=== PATIENT | female | born 1970 | race Caucasian/White ===

== ENCOUNTER 2018-09-12 12:11 | Emergency (ER) | payer OTHER ==
[~2018-09-12] VITALS: Ht 165.1 cm; Wt 74.4 kg
[~2018-09-12 12:11] MED LIST: IBU800 M1 PO; KENALOG0.1% TP; MOTRIN800 MG PO; NAPROSYN500 MG PO; NKHM; PREDNICOT20 MG PO; TRAMADOL HCL50 MG PO; ULTRAM50 MG PO; VICODIN ES 7501 TAB PO; VISTARIL25 MG PO; VOLTAREN50 M1 PO
[2018-09-12] MEDS ORDERED: NAPROSYN500 MG PO (12:32)
== END 2018-09-12 14:47 | disposition home or self-care (01) ==
LOC: ED 12:11
DX: S93.401A Sprain of unspecified ligament of right ankle, initial encounter (principal); R03.0 Elevated blood-pressure reading, without diagnosis of hypertension; F17.200 Nicotine dependence, unspecified, uncomplicated; Z88.5 Allergy status to narcotic agent; Z88.6 Allergy status to analgesic agent; X58.XXXA Exposure to other specified factors, initial encounter; Y93.89 Activity, other specified; Y92.89 Other specified places as the place of occurrence of the external cause; Y99.8 Other external cause status

== ENCOUNTER 2020-06-16 17:39 | Emergency (ER) | payer OTHER ==
[~2020-06-16] VITALS: Wt 80.7 kg
[2020-06-16] MEDS ORDERED: ANAPROX DS550 MG PO (18:05)
== END 2020-06-16 19:23 | disposition home or self-care (01) ==
LOC: ED 17:39
DX: M75.21 Bicipital tendinitis, right shoulder (principal); F17.200 Nicotine dependence, unspecified, uncomplicated; Z88.6 Allergy status to analgesic agent

== ENCOUNTER 2020-08-31 05:08 | Emergency (ER) | payer OTHER ==
[~2020-08-31] VITALS: Ht 165.1 cm; Wt 79.4 kg
[~2020-08-31 05:08] MED LIST changes: +ANAPROX DS550 MG PO
== END 2020-08-31 07:00 | disposition home or self-care (01) ==
LOC: ED 05:08
DX: S90.32XA Contusion of left foot, initial encounter (principal); Z88.8 Allergy status to other drugs, medicaments and biological substances; Z79.899 Other long term (current) drug therapy; X58.XXXA Exposure to other specified factors, initial encounter; Y93.89 Activity, other specified; Y92.89 Other specified places as the place of occurrence of the external cause; Y99.8 Other external cause status